=== PATIENT | male | born 1965 | race Caucasian/White ===

== ENCOUNTER 2018-05-05 17:34 | Emergency (ER) | payer BC ==
[2018-05-05] MEDS ORDERED: ACETAMINOPHEN 1,000 MG/100 ML BTL IVPB ONE (17:50)
[2018-05-05] MEDS ORDERED: 0.9 % SODIUM CHLORIDE 1,000 ML BAG IV ONE (17:50)
--- NOTE | 2018-05-05 17:56 | Emergency Department Record ---
History of Present Illness - General Source: Patient Mode of Arrival: Ambulatory Limitations: No limitations - History of Present Illness Initial Comments: 52 yo male presents with left lower quadrant pain. The pain was first noted about 6 weeks ago. No fevers, chills, nausea, vomiting. He gets some relief with urination. No hematuria. No diarrhea. No vomiting. No rash. No history of abdominal surgery. He had a colonoscopy about 3 years ago that he reports was negative. MD Complaint: Abdominal pain -: Week(s) (6) Location: LLQ Radiation: LLQ Migration to: LLQ Quality: Aching Consistency: Intermittent Improves With: Nothing Worsens With: Other (Palpation) Context: Other Associated Symptoms: Denies other symptoms <ALEXA SHETTY - Last Filed: 05/05/18 18:23> <DIVYA CATES - Last Filed: 05/05/18 20:37> - General Chief Complaint: Abdominal Pain Stated Complaint: LT LOWER ABDOMINAL PAIN Time Seen by Provider: 05/05/18 17:39 - Related Data Home Medications Medication Instructions Recorded Confirmed Last Taken Alprazolam [Xanax] 0.5 mg PO ASDIR 05/05/18 05/05/18 05/05/18 Amlodipine Besylate [Norvasc] 10 mg PO DAILY 05/05/18 05/05/18 05/05/18 Bupropion HCl [Wellbutrin Sr] 200 mg PO DAILY 05/05/18 05/05/18 05/05/18 Losartan Potassium [Cozaar] 100 mg PO DAILY 05/05/18 05/05/18 05/05/18 Metoprolol Succinate [Toprol Xl] 100 mg PO DAILY 05/05/18 05/05/18 05/05/18 Omeprazole [Prilosec] 20 mg PO DAILY 05/05/18 05/05/18 05/05/18 Rivaroxaban [Xarelto] 20 mg PO DAILY 05/05/18 05/05/18 05/05/18 Previous Rx's Medication Instructions Recorded Ciprofloxacin HCl [Cipro] 500 mg PO Q12HR #19 tablet 05/05/18 Metronidazole [Flagyl] 500 mg PO TID #29 tablet 05/05/18 Allergies Allergy/AdvReac Type Severity Reaction Status Date / Time No Known Drug Allergies Allergy Verified 05/05/18 17:45 Review of Systems Constitutional: Denies: Chills, Fever, Malaise, Weakness Eyes: Denies: Eye discharge ENT: Denies: Congestion, Throat pain Respiratory: Denies: Cough, Dyspnea, Hemoptysis, Stridor, Wheezes Cardiovascular: Denies: Chest pain, Palpitations, Syncope Endocrine: Denies: Fatigue Gastrointestinal: Reports: Abdominal pain. Denies: Constipation, Diarrhea, Hematemesis, Nausea, Vomiting Genitourinary: Reports: Frequency. Denies: Discharge, Dysuria, Hematuria, Urgency Musculoskeletal: Denies: Arthralgia, Back pain, Joint swelling, Myalgia Skin: Denies: Bruising, Change in color, Rash Neurological: Denies: Headache, Numbness, Weakness Psychiatric: Denies: Anxiety Hematological/Lymphatic: Denies: Blood Clots, Easy bleeding, Easy bruising, Swollen glands <ALEXA SHETTY - Last Filed: 05/05/18 18:23> Physical Exam - General General Appearance: Alert, Oriented x3, Cooperative, No acute distress Limitations: No limitations - Head Head exam: Atraumatic, Normal inspection - Eye Eye exam: Normal appearance. negative: Conjunctival injection, Scleral icterus - ENT ENT exam: Normal exam, Mucous membranes moist Ear exam: Normal external inspection Nasal Exam: Normal inspection Mouth exam: Normal external inspection - Neck Neck exam: Normal inspection, Full ROM. negative: Tenderness - Respiratory Respiratory exam: Normal lung sounds bilaterally. negative: Respiratory distress - Cardiovascular Cardiovascular Exam: Regular rate, Normal rhythm, Normal heart sounds - GI/Abdominal GI/Abdominal exam: Soft, Normal bowel sounds, Tenderness (Tender to palpation of the LLQ), Other (Obese). negative: Distended, Guarding, Rebound, Rigid - Rectal Rectal exam: Deferred - exam: Deferred - Extremities Extremities exam: Normal inspection, Full ROM, Normal capillary refill. negative: Tenderness - Back Back exam: Reports: Full ROM. Denies: CVA tenderness (R), CVA tenderness (L), Tenderness - Neurological Neurological exam: Alert, Oriented X3 - Psychiatric Psychiatric exam: Normal affect, Normal mood. negative: Agitated, Anxious - Skin Skin exam: Dry, Intact, Normal color, Warm <ALEXA SHETTY - Last Filed: 05/05/18 18:23> Course - Reevaluation(s) Reevaluation #1: 05/05/18 18:23 The CBC was reviewed. WBC count is 15. <ALEXA SHETTY - Last Filed: 05/05/18 18:23> Vital Signs 05/05/18 05/05/18 17:51 18:40 Temperature 97.8 F Pulse Rate 96 H Pulse Rate [ 85 Pulse Ox Probe] Respiratory 20 16 Rate Blood Pressure 148/99 Blood Pressure 150/87 [Right Arm] Pulse Ox 96 95 - Reevaluation(s) Reevaluation #2: 05/05/18 19:58 Labs reviewed, WBC 15.0, labs are otherwise grossly unremarkable for an acute process. Morphine/Zofran ordered for worsening pain symptoms following Ofirmev administration. Reevaluation #3: 05/05/18 20:34 CT Abdomen and Pelvis: Sigmoid diverticulitis Patient was updated on all results, reports improvement of his pain symptoms following Morphine administration. Will initiate treatment with Cipro and Flagyl, appears stable for discharge at this time. <DIVYA CATES - Last Filed: 05/05/18 20:37> Medical Decision Making - Lab Data Result diagrams: 05/05/18 18:00 05/05/18 18:00 <ALEXA SHETTY - Last Filed: 05/05/18 18:23> - Lab Data Result diagrams: 05/05/18 18:00 05/05/18 18:00 Lab Results 05/05/18 05/05/18 05/05/18 Range/Units 18:00 18:00 19:19 WBC 15.0 H (4.2-12.2) K/uL RBC 4.99 (4.40-5.70) M/uL Hgb 15.6 (14.0-18.0) gm/dl Hct 44.6 (42.0-52.0) % MCV 89.4 (81-97) fl MCH 31.3 (27-33) pg MCHC 35.0 (32-36) g/dl RDW 13.3 (11.5-14.5) % Plt Count 290 (130-400) K/uL MPV 8.7 (7.4-10.4) fl Gran % 77.3 (47-80) % Lymphocytes % 11.5 L (16-45) % Monocytes % 10.5 H (0-9) % Eosinophils % 0.5 (0-6) % Basophils % 0.2 (0-6) % Sodium 135 L (136-145) mmol/L Potassium 3.9 (3.4-4.5) mmol/L Chloride 97 L (98-107) mmol/L Carbon Dioxide 23.0 (22-29) mmol/L Anion Gap 15.0 (7-16) BUN 17 (6-20) mg/dL Creatinine 0.9 (0.7-1.2) mg/dL Estimated GFR > 60 mL/min Random Glucose 124 H (74-109) mg/dL Calcium 8.9 (8.6-10.0) mg/dL Total Bilirubin 0.80 (0.2-1.0) mg/dL AST 21 (10.0-50.0) U/L ALT 32 (<41) U/L Alkaline Phosphatase 54 (40-129) U/L Total Protein 7.4 (6.6-8.7) g/dL Albumin 4.4 (4.0-5.0) g/dL Globulin 3.0 (1.4-4.8) gm/dL Albumin/Globulin Ratio 1.5 (1.1-1.8) Lipase 23 (13-60) U/L Urine Color Yellow Urine Appearance Clear Urine pH 7.0 (5.0-8.0) Ur Specific [place] 1.010 (1.002-1.030) Urine Protein Negative (NEGATIVE) Urine Glucose (UA) Negative (NEGATIVE) Urine Ketones Negative (NEGATIVE) Urine Blood Negative (NEGATIVE) Urine Nitrite Negative (NEGATIVE) Urine Bilirubin Negative (NEGATIVE) Urine Urobilinogen 0.2 (0.20 - 1.00) E.U./dL Ur Leukocyte Esterase Negative (NEGATIVE) <DIVYA CATES - Last Filed: 05/05/18 20:37> Disposition <ALEXA SHETTY - Last Filed: 05/05/18 18:23> Disposition: Discharge Time of Disposition: 20:37 <DIVYA CATES - Last Filed: 05/05/18 20:37> Clinical Impression: Diverticulitis Disposition: Home, Self-Care Condition: (2) Stable Instructions: Diverticulitis (ED) Additional Instructions: Return to ED if your symptoms worsen or if you have any concerns. Flagyl and Cipro as directed. Follow-up with your family doctor in 3-5 days as directed. Prescriptions: Ciprofloxacin HCl [Cipro] 500 mg PO Q12HR #19 tablet Metronidazole [Flagyl] 500 mg PO TID #29 tablet Forms: Patient Portal Access Quality - Blood Pressure Screening Does Patient Have Any of the Following: No Blood Pressure Classification: Hypertensive Reading Systolic Measurement: 148 Diastolic Measurement: 99 <ALEXA SHETTY - Last Filed: 05/05/18 18:23> - Quality Measures Quality Measures: N/A - Blood Pressure Screening Does Patient Have Any of the Following: No Blood Pressure Classification: Hypertensive Reading Systolic Measurement: 148 Diastolic Measurement: 99 Screening for High Blood Pressure: < First Hypertensive BP, F/U Documented > [ [id number]] First Hypertensive Follow-up Interventions: Referral to alternative/primary care provider. <DIVYA CATES - Last Filed: 05/05/18 20:37>
[2018-05-05 18:10] LABS: BASO % 0.2 % (0-6); EOS % 0.5 % (0-6); GRAN % 77.3 % (47-80); HEMATOCRIT 44.6 % (42.0-52.0); HEMOGLOBIN 15.6 gm/dl (14.0-18.0); LYMPH % 11.5 % (16-45); MEAN CELL VOLUME 89.4 fl (81-97); MEAN CORPUSCULAR HEMOGLOBIN 31.3 pg (27-33); MEAN PLATELET VOLUME 8.7 fl (7.4-10.4); MONO % 10.5 % (0-9); PLATELET COUNT 290 K/uL (130-400); RED BLOOD COUNT 4.99 M/uL (4.40-5.70); RED CELL DISTRIBUTION WIDTH 13.3 % (11.5-14.5)
[2018-05-05 18:24] LABS: BLOOD UREA NITROGEN 17 mg/dL (6-20); CREATININE 0.9 mg/dL (0.7-1.2); EST GLOMERULAR FILTRATION RATE > 60 mL/min
[2018-05-05 18:25] LABS: TOTAL PROTEIN 7.4 g/dL (6.6-8.7)
[2018-05-05 18:27] LABS: GLUCOSE,RANDOM 124 mg/dL (74-109)
[2018-05-05 18:29] LABS: ALT/SGPT 32 U/L (<41)
[2018-05-05 18:30] LABS: ALB/GLOB RATIO 1.5 (1.1-1.8); ALBUMIN 4.4 g/dL (4.0-5.0); ALKALINE PHOSPHATASE 54 U/L (40-129); AST/SGOT 21 U/L (10.0-50.0); LIPASE 23 U/L (13-60)
[2018-05-05 19:17] LABS: URINE APPEARANCE CLEAR; URINE BILIRUBIN NEGATIVE (NEGATIVE); URINE BLOOD NEGATIVE (NEGATIVE); URINE COLOR YELLOW; URINE GLUCOSE (UA) NEGATIVE (NEGATIVE); URINE KETONE NEGATIVE (NEGATIVE); URINE LEUKOCYTE ESTERASE NEGATIVE (NEGATIVE); URINE NITRITE NEGATIVE (NEGATIVE); URINE PROTEIN NEGATIVE (NEGATIVE); URINE UROBILINOGEN 0.2 E.U./dL (0.20 - 1.00)
[2018-05-05] MEDS ORDERED: MORPHINE SULFATE 10 MG/ML VIAL IVP ONE (19:56)
[2018-05-05] MEDS ORDERED: ONDANSETRON HCL IV 4 MG/2 ML VIAL IVP ONE (19:56)
[2018-05-05] MEDS ORDERED: CIPROFLOXACIN HCL 500 MG TABLET PO ONE (20:34)
[2018-05-05] MEDS ORDERED: METRONIDAZOLE 250 MG TABLET PO ONE (20:34)
--- NOTE | 2018-05-06 15:04 | CT SCAN REPORT ---
EXAM: CT OF THE ABDOMEN AND PELVIS HISTORY: LEFT SIDED PAIN. TECHNIQUE: CT of the abdomen and pelvis was performed following IV administration of 100 ml of Omnipaque 300 contrast. Oral contrast was also utilized. Comparison: None. FINDINGS: Limited evaluation of the lung bases shows subsegmental atelectasis in each lung base. The osseous structures are grossly intact. Diffuse fatty infiltrative change to the liver. No focal liver lesions. The spleen, adrenal glands, pancreas, and kidneys are unremarkable. No gross evidence for bowel obstruction, however, there is abnormal wall thickening of the sigmoid colon with surrounding inflammation. Several diverticula are present. No discreet abscess, however, findings likely reflect acute sigmoid diverticulitis. No free air or free fluid. No retroperitoneal or mesenteric adenopathy. Periumbilical hernia noted. IMPRESSION: 1. ACUTE SIGMOID DIVERTICULITIS. RECOMMEND FOLLOW-UP TO INSURE RESOLUTION. 2. DIFFUSE FATTY INFILTRATIVE CHANGE TO THE LIVER. JOB NUMBER: [id number] MTDD
== END 2018-05-05 21:00 | disposition home or self-care (01) ==
LOC: ER 17:34
DX: K57.32 Diverticulitis of large intestine without perforation or abscess without bleeding (principal); I10 Essential (primary) hypertension; I48.91 Unspecified atrial fibrillation
CPT/HCPCS: 74177; 80053; 81003; 83690; 85025; 96365; 96375; 99284; J2270; J2405; J7030